=== PATIENT | male | born 1980 | race Caucasian/White ===

== ENCOUNTER 2023-08-10 09:43 | Emergency (ER) | payer BC, SELFPAY ==
[2023-08-10 09:47] VITALS: BP 131/85
--- NOTE | 2023-08-10 10:42 | ED.GENMED ---
History of Present Illness
General
Chief Complaint: Fall
Time Seen by Provider: 08/10/23 10:15
Travel History
Have you had any contact with someone who has COVID-19?: No
Do you have any symptoms of coronavirus? Fever > 100 degrees, chills, cough, shortness of breath, sore throat, loss of taste or smell, muscle aches, or headache?: No
History of Present Illness
History of Present Illness:
42-year-old male presents to the emergency department for evaluation of right ankle pain, slipped on the ice and twisted/inverted the ankle. He is able to bear weight with pain. Denies any knee pain or hip pain.
Review of Systems
Review of Systems
Allergies reviewed?: Yes
All Other Systems: ROS reviewed and negative except as documented in HPI and ROS
Phy Exam
Physical Exam
Physical Exam:
GEN: Well appearing, NAD, WDWN
HEENT: Oral mucosa moist, no scleral icterus
Cardiac: Regular rate
Lung: No respiratory distress, no tachypnea
MSK: Swelling and tenderness to the right lateral malleolus, normal ankle range of motion with no deformities. No lateral foot tenderness or proximal fibular tenderness
Skin: Good color, no pallor or jaundice, no rashes
Neuro: AO x3, moves all extremities freely
Psych: Calm, cooperative
Course
Orders/Labs/Results
Orders:
Orders
08/10/23 10:21
CR Ankle - Right Min 3 Views * Urgent
Comment:
Reason For Exam: fall pain to lateral malleolus
08/10/23 10:57
Ortho Boot Right- Treatment ONCE
Short or tall?: Short
Vital Signs
Initial and Last Documented VS:
Initial Vital Signs
Temp Pulse Resp BP Pulse Ox
97.8 F 84 18 131/85 98
08/10/23 09:47 08/10/23 09:47 08/10/23 09:47 08/10/23 09:47 08/10/23 09:47
Last Documented Vital Signs
Temp Pulse Resp BP Pulse Ox
97.8 F 84 18 131/85 98
08/10/23 09:47 08/10/23 09:47 08/10/23 09:47 08/10/23 09:47 08/10/23 09:47
MDM/Problems Addressed
MDM/Problems Addressed:
X-rays of the right ankle independently interpreted by me show a faint avulsion fracture of the distal fibula. Placed in orthopedic boot, weightbearing as tolerated, advised outpatient orthopedic follow-up
*Critical Care Note
Total Time (30-74mins, 75-104mins- exclusive of procedures): Not Applicable
ED Attending Note
-
Portions of this chart may have been created with voice recognition software.� Occasional wrong word or��sound alike� substitutions may have occurred due to the inherent limitations of voice recognition software.
Discharge Plan
Departure
Patient Disposition: Home (Routine Discharge)
Date of Disposition: 08/10/23
Time of Disposition: 10:57
Patient with high blood pressure during this ER visit?: No
Discharge Problem:
Moderate right ankle sprain
Instructions: Ankle Sprain (DC)
Referrals:
Elton Walls MD [Active] -
Interventions
Interventions:
*Risk Screen - Suicide Last Done: 08/10/23 09:49
*General Assessment Last Done: 08/10/23 09:49
*Neglect/Abuse Screening Last Done: 08/10/23 09:49
ED- Fall Risk Assessment Last Done: 08/10/23 11:08
*ED COVID-19 Vaccine History Last Done: 08/10/23 11:26
*Nursing Disposition Last Done: 08/10/23 11:26
ED-Musculoskeletal Assessment Last Done: 08/10/23 11:08
ED- Neurological Assessment Last Done: 08/10/23 11:27
ED-Skin Assessment Last Done: 08/10/23 11:08
Discharge Date and Time
Discharge Date/Time: 08/10/23 11:27
== END 2023-08-10 11:27 | disposition home or self-care (01) ==
LOC: EMR 09:43
PROVIDERS: EMERGENCY PHYSICIAN Emergency Medicine
DX: S93.401A Sprain of unspecified ligament of right ankle, initial encounter (principal); W00.0XXA Fall on same level due to ice and snow, initial encounter
CPT/HCPCS: 99283; 73610